=== PATIENT | male | born 1970 ===

== ENCOUNTER 2021-05-30 08:16 | Day surgery (SDC) | payer BC ==
[~2021-05-30 08:16] MED LIST: Lactated Ringers 1,000 ML IV SCH; Lidocaine 1%/Sod Bicarbonate in NS 8.4% 1 ML Syringe IDERM PRN; Sodium Chloride 0.9% 10 ML Syringe FLUSH PRN; Sodium Chloride 0.9% 10 ML Syringe FLUSH SCH
[2021-05-30] MEDS ORDERED: fentaNYL 100 MCG/2 ML SDV ONE (10:04)
[2021-05-30] MEDS ORDERED: Lidocaine 1% 6 ML ONE (10:05)
[2021-05-30] MEDS ORDERED: Midazolam 1 MG/ML 2 ML SDV ONE (10:05)
[2021-05-30] MEDS ORDERED: Propofol 200 MG/20 ML SDV ONE ×2 (10:05→10:13)
== END 2021-05-30 11:22 | disposition home or self-care (01) ==
LOC: JD.SDS 08:16
PROVIDERS: ATTEND Surgery
DX: Z12.11 Encounter for screening for malignant neoplasm of colon (principal); K63.5 Polyp of colon; E55.9 Vitamin D deficiency, unspecified; Z98.890 Other specified postprocedural states; E78.00 Pure hypercholesterolemia, unspecified; F17.200 Nicotine dependence, unspecified, uncomplicated
CPT/HCPCS: 45380; J2250; J2704; J3010; J7120; 00812